=== PATIENT | male | born 1990 | race Caucasian/White ===

== ENCOUNTER 2016-07-20 05:50 | Emergency (ER) | payer SELFPAY ==
[2016-07-20 06:15] LABS: APPEARANCE CLEAR (CLEAR); BACTERIA FEW /hpf (NONE SEEN); BILIRUBIN NEGATIVE (NEGATIVE); COLOR YELLOW (YELLOW); EPITHELIAL CELLS OCC /hpf (0-5); GLUCOSE NEGATIVE (NEGATIVE); KETONE NEGATIVE (NEGATIVE); LEUKOCYTE ESTERASE NEGATIVE (NEGATIVE); MUCUS <1+ /lpf (NONE SEEN); NITRITE NEGATIVE (NEGATIVE); PROTEIN NEGATIVE (NEGATIVE); RED CELLS - URINE 25-50 /hpf (0-5); SPECIFIC GRAVITY 1.015 (1.005-1.020); UROBILINOGEN NORMAL (NORMAL); WHITE CELLS - URINE OCC /hpf (0-5)
[2016-07-20 06:43] LABS: BASOPHILS 0.3 % (0-2); EOSINOPHILS 8.6 % (0-7); HEMATOCRIT 43.9 % (42.0-54.0); HEMOGLOBIN 14.2 g/dL (13.5-17.5); IMMATURE GRANULOCYTES 0.3 % (0-5); LYMPHOCYTES 33.5 % (15-50); MCH 27.2 pg (26.0-34.0); MCHC 32.3 g/dL (31.0-37.0); MCV 84.1 fL (80.0-100.0); MEAN PLATELET VOLUME 9.1 fL (7.4-10.4); MONOCYTES 6.6 % (2-11); NEUTROPHILS 50.7 % (40-80); PLATELET COUNT 297 10x3/uL (130-400); RBC 5.22 10x6/uL (4.20-6.10); RDW 14.2 % (11.5-14.5); WBC 7.6 10x3/uL (4.8-10.8)
[2016-07-20 07:00] LABS: ALBUMIN 3.9 g/dL (3.4-5.0); ALKALINE PHOSPHATASE 79 U/L (46-116); ALT (SGPT) 68 U/L (10-68); CALC OSMOLALITY 277 mosm/kg (275-300); CALCIUM 9.2 mg/dL (8.5-10.1); CARBON DIOXIDE 29.3 mmol/L (21.0-32.0); CHLORIDE - SERUM 101 mmol/L (98-107); CREATININE - SERUM 0.9 mg/dL (0.6-1.3); GLUCOSE 115 mg/dL (74-106); POTASSIUM - SERUM 4.2 mmol/L (3.5-5.1); PROTEIN - SERUM 7.8 g/dL (6.4-8.2); SODIUM 139 mmol/L (136-145); UREA NITROGEN 11 mg/dL (7-18); eGFR NON AFRICAN AMERICAN > 90 mL/min (90-120)
== END 2016-07-20 08:16 | disposition home or self-care (01) ==
LOC: D.ER 05:50
PROVIDERS: Emergency Medicine
DX: N23 Unspecified renal colic (principal); N20.1 Calculus of ureter; I10 Essential (primary) hypertension

== ENCOUNTER 2016-09-20 16:51 | Emergency (ER) | payer SELFPAY | END 2016-09-20 21:15 | disposition home or self-care (01) | LOC: D.ER 16:51 | DX: I10 Essential (primary) hypertension (principal); R55 Syncope and collapse; F17.200 Nicotine dependence, unspecified, uncomplicated ==

== ENCOUNTER 2018-05-31 19:07 | Emergency (ER) | payer BC ==
[2018-05-31] MEDS ORDERED: LISINOPRIL-HCT1 EAC4 PO (19:15)
[2018-05-31 20:35] LABS: BASOPHILS 0.3 % (0-2); EOSINOPHILS 5.7 % (0-7); HEMATOCRIT 40.9 % (42.0-54.0); HEMOGLOBIN 13.5 g/dL (13.5-17.5); IMMATURE GRANULOCYTES 0.2 % (0-5); LYMPHOCYTES 21.8 % (15-50); MCH 27.2 pg (26.0-34.0); MCV 82.3 fL (80.0-100.0); MEAN PLATELET VOLUME 9.1 fL (7.4-10.4); MONOCYTES 5.4 % (2-11); NEUTROPHILS 66.6 % (40-80); PLATELET COUNT 342 10x3/uL (130-400); RBC 4.97 10x6/uL (4.20-6.10); WBC 10.2 10x3/uL (4.8-10.8)
[2018-05-31 21:01] LABS: ALBUMIN 3.8 g/dL (3.4-5.0); ALKALINE PHOSPHATASE 90 U/L (46-116); ALT (SGPT) 56 U/L (10-68); BILIRUBIN - TOTAL 0.36 mg/dL (0.2-1.3); CALC OSMOLALITY 275 mosm/kg (275-300); CALCIUM 8.7 mg/dL (8.5-10.1); CARBON DIOXIDE 26.1 mmol/L (21.0-32.0); CHLORIDE - SERUM 102 mmol/L (98-107); CREATININE - SERUM 0.8 mg/dL (0.6-1.3); GLUCOSE 160 mg/dL (74-106); PROTEIN - SERUM 7.8 g/dL (6.4-8.2); SODIUM 137 mmol/L (136-145); UREA NITROGEN 11 mg/dL (7-18); eGFR NON AFRICAN AMERICAN > 90 mL/min (90-120)
[2018-05-31 21:02] LABS: TROPONIN-I < 0.017 ng/mL (0.000-0.060)
[2018-05-31] MEDS ORDERED: STERAPRED 5MG 125 MG PO (21:48)
== END 2018-05-31 22:05 | disposition home or self-care (01) ==
LOC: D.ER 19:07
PROVIDERS: Family Medicine
DX: J40 Bronchitis, not specified as acute or chronic (principal)

== ENCOUNTER 2019-02-01 15:32 | Emergency (ER) | payer BC ==
[~2019-02-01] VITALS: Ht 188 cm; Wt 163.6 kg
[~2019-02-01 15:32] MED LIST: LISINOPRIL-HCT1 EAC4 PO; STERAPRED 5MG 125 MG PO
[2019-02-01 15:56] VITALS: Ht 188 cm; Wt 163.6 kg
[2019-02-01] MEDS ORDERED: BUPROPION HCL150 M1 PO (15:59)
[2019-02-01] MEDS ORDERED: NALTREXONE HCL50 MG PO (16:00)
[2019-02-01 16:22] LABS: BASOPHILS 0.1 % (0-2); EOSINOPHILS 1.5 % (0-7); HEMATOCRIT 45.2 % (42.0-54.0); HEMOGLOBIN 14.4 g/dL (13.5-17.5); IMMATURE GRANULOCYTES 0.1 % (0-5); LYMPHOCYTES 10.8 % (15-50); MCH 27.2 pg (26.0-34.0); MCHC 31.9 g/dL (31.0-37.0); MCV 85.3 fL (80.0-100.0); MEAN PLATELET VOLUME 8.9 fL (7.4-10.4); MONOCYTES 3.4 % (2-11); NEUTROPHILS 84.1 % (40-80); WBC 14.3 10x3/uL (4.8-10.8)
[2019-02-01 16:31] LABS: PLATELET COUNT 411 10x3/uL (130-400)
[2019-02-01 16:35] LABS: CALC OSMOLALITY 280 mosm/kg (275-300); CALCIUM 9.2 mg/dL (8.5-10.1); CARBON DIOXIDE 29.9 mmol/L (21.0-32.0); CHLORIDE - SERUM 101 mmol/L (98-107); POTASSIUM - SERUM 4.1 mmol/L (3.5-5.1); SODIUM 138 mmol/L (136-145); UREA NITROGEN 9 mg/dL (7-18); eGFR NON AFRICAN AMERICAN > 90 mL/min (90-120)
[2019-02-01 16:37] LABS: APTT 30.1 SECONDS (22.8-39.4); INR 0.95 (0.85-1.17); PROTIME 12.2 SECONDS (11.6-15.0)
[2019-02-01 16:38] LABS: GLUCOSE 214 mg/dL (74-106)
[2019-02-01 16:52] LABS: ALBUMIN 4.1 g/dL (3.4-5.0); ALKALINE PHOSPHATASE 95 U/L (46-116); ALT (SGPT) 56 U/L (10-68); CKMB 2.1 U/L (0.0-3.6); CREATINE KINASE 129 UL (21-232); PROTEIN - SERUM 7.8 g/dL (6.4-8.2); TROPONIN-I < 0.017 ng/mL (0.000-0.060)
[2019-02-01 17:58] LABS: APPEARANCE CLEAR (CLEAR); BILIRUBIN NEGATIVE (NEGATIVE); COLOR YELLOW (YELLOW); GLUCOSE 500 mg/dL (NEGATIVE); KETONE NEGATIVE (NEGATIVE); NITRITE NEGATIVE (NEGATIVE); PROTEIN NEGATIVE (NEGATIVE); UROBILINOGEN NORMAL (NORMAL)
[2019-02-01 18:06] LABS: UDS - AMPHET NEGATIVE QUAL (NEGATIVE); UDS - BARB NEGATIVE QUAL (NEGATIVE); UDS - BENZO NEGATIVE QUAL (NEGATIVE); UDS - COCAINE NEGATIVE QUAL (NEGATIVE); UDS - OPIATE NEGATIVE QUAL (NEGATIVE); UDS - PCP NEGATIVE QUAL (NEGATIVE); UDS - THC NEGATIVE QUAL (NEGATIVE)
[2019-02-01 18:27] VITALS: BP 140/83
== END 2019-02-01 18:28 | disposition home or self-care (01) ==
LOC: D.ER 15:32
PROVIDERS: Family Medicine
DX: R07.9 Chest pain, unspecified (principal); R73.9 Hyperglycemia, unspecified; D72.829 Elevated white blood cell count, unspecified; I10 Essential (primary) hypertension

== ENCOUNTER 2019-02-28 14:48 | Emergency (ER) | payer BC ==
[~2019-02-28] VITALS: Ht 188 cm; Wt 156.8 kg
[~2019-02-28 14:48] MED LIST changes: +BUPROPION HCL150 M1 PO; +NALTREXONE HCL50 MG PO
[2019-02-28 15:12] VITALS: Ht 188 cm; Wt 156.8 kg
[2019-02-28 15:48] LABS: APPEARANCE CLEAR (CLEAR); BILIRUBIN NEGATIVE (NEGATIVE); COLOR YELLOW (YELLOW); GLUCOSE NEGATIVE (NEGATIVE); KETONE SMALL mg/dL (NEGATIVE); NITRITE NEGATIVE (NEGATIVE); PROTEIN NEGATIVE (NEGATIVE); SPECIFIC GRAVITY 1.015 (1.005-1.020); UROBILINOGEN NORMAL (NORMAL)
[2019-02-28 15:50] LABS: BASOPHILS 0.2 % (0-2); HEMATOCRIT 46.6 % (42.0-54.0); HEMOGLOBIN 14.8 g/dL (13.5-17.5); IMMATURE GRANULOCYTES 0.2 % (0-5); LYMPHOCYTES 29.7 % (15-50); MCH 26.7 pg (26.0-34.0); MCHC 31.8 g/dL (31.0-37.0); MEAN PLATELET VOLUME 8.9 fL (7.4-10.4); MONOCYTES 12.2 % (2-11); NEUTROPHILS 53.7 % (40-80); RBC 5.55 10x6/uL (4.20-6.10); RDW 13.9 % (11.5-14.5); WBC 4.7 10x3/uL (4.8-10.8)
[2019-02-28 16:00] LABS: CALC OSMOLALITY 276 mosm/kg (275-300); CARBON DIOXIDE 33.3 mmol/L (21.0-32.0); CHLORIDE - SERUM 100 mmol/L (98-107); CREATININE - SERUM 0.8 mg/dL (0.6-1.3); POTASSIUM - SERUM 4.6 mmol/L (3.5-5.1); SODIUM 139 mmol/L (136-145); UREA NITROGEN 9 mg/dL (7-18); eGFR NON AFRICAN AMERICAN > 90 mL/min (90-120)
[2019-02-28 16:06] LABS: ALBUMIN 3.9 g/dL (3.4-5.0); ALKALINE PHOSPHATASE 105 U/L (46-116); ALT (SGPT) 47 U/L (10-68); AMYLASE - SERUM 48 U/L (25-115); GLUCOSE 107 mg/dL (74-106); LIPASE 91 U/L (73-393); PROTEIN - SERUM 7.5 g/dL (6.4-8.2)
[2019-02-28 16:07] LABS: PLATELET COUNT 270 10x3/uL (130-400)
[2019-02-28] MEDS ORDERED: DURAFLU 325-201 EACH PO (16:55)
[2019-02-28 18:06] VITALS: BP 101/40
== END 2019-02-28 18:08 | disposition home or self-care (01) ==
LOC: D.ER 14:48
PROVIDERS: Emergency Medicine
DX: J10.1 Influenza due to other identified influenza virus with other respiratory manifestations (principal); I10 Essential (primary) hypertension

== ENCOUNTER 2019-06-27 04:57 | Emergency (ER) | payer BC ==
[~2019-06-27] VITALS: Ht 188 cm; Wt 163.6 kg
[~2019-06-27 04:57] MED LIST changes: +DURAFLU 325-201 EACH PO
[2019-06-27 05:04] VITALS: Ht 188 cm; Wt 163.6 kg
[2019-06-27 05:20] LABS: BILIRUBIN NEGATIVE (NEGATIVE); GLUCOSE NEGATIVE (NEGATIVE); KETONE SMALL mg/dL (NEGATIVE); NITRITE NEGATIVE (NEGATIVE); UROBILINOGEN NORMAL (NORMAL)
[2019-06-27 05:25] LABS: BACTERIA NONE SEEN /hpf (NEGATIVE); EPITHELIAL CELLS RARE /hpf (0-5); RED CELLS - URINE >50 /hpf (0-5); WHITE CELLS - URINE RARE /hpf (NEGATIVE)
[2019-06-27] MEDS ORDERED: FLOMAX0.4 MG PO (06:27)
[2019-06-27] MEDS ORDERED: HYDROCODON-ACE1 EAC7 PO (06:28)
[2019-06-27] MEDS ORDERED: MACROBID100 MG PO (06:29)
[2019-06-27 06:37] VITALS: BP 132/81
== END 2019-06-27 06:38 | disposition home or self-care (01) ==
LOC: D.ER 04:57
PROVIDERS: Surgery
DX: R31.9 Hematuria, unspecified (principal); R10.9 Unspecified abdominal pain; N20.0 Calculus of kidney; I10 Essential (primary) hypertension

== ENCOUNTER 2019-06-29 07:29 | Observation (INO) | payer BC ==
[~2019-06-29] VITALS: Ht 188 cm; Wt 165.1 kg
[~2019-06-29 07:29] MED LIST changes: +FLOMAX0.4 MG PO; +HYDROCODON-ACE1 EAC7 PO; +MACROBID100 MG PO
[2019-06-29 08:08] LABS: HEMATOCRIT 43.5 % (42.0-54.0); HEMOGLOBIN 13.5 g/dL (13.5-17.5); LYMPHOCYTES 17.9 % (15-50); MCH 25.9 pg (26.0-34.0); MCV 83.3 fL (80.0-100.0); MEAN PLATELET VOLUME 8.5 fL (7.4-10.4); NEUTROPHILS 73.2 % (40-80); PLATELET COUNT 322 10x3/uL (130-400); RBC 5.22 10x6/uL (4.20-6.10); RDW 13.6 % (11.5-14.5); WBC 9.1 10x3/uL (4.8-10.8)
[2019-06-29 08:14] LABS: BILIRUBIN NEGATIVE (NEGATIVE); EPITHELIAL CELLS 0-5 /hpf (0-5); GLUCOSE NEGATIVE (NEGATIVE); KETONE NEGATIVE (NEGATIVE); NITRITE NEGATIVE (NEGATIVE); RED CELLS - URINE >50 /hpf (0-5); SPECIFIC GRAVITY 1.025 (1.005-1.020); UROBILINOGEN NORMAL (NORMAL); WHITE CELLS - URINE 0-5 /hpf (NEGATIVE)
[2019-06-29 08:15] LABS: BACTERIA FEW /hpf (NEGATIVE)
[2019-06-29 08:20] LABS: CALC OSMOLALITY 277 mosm/kg (275-300); CALCIUM 8.5 mg/dL (8.5-10.1); CHLORIDE - SERUM 102 mmol/L (98-107); CREATININE - SERUM 0.9 mg/dL (0.6-1.3); GLUCOSE 109 mg/dL (74-106); POTASSIUM - SERUM 4.1 mmol/L (3.5-5.1); SODIUM 139 mmol/L (136-145); UREA NITROGEN 11 mg/dL (7-18); eGFR NON AFRICAN AMERICAN > 90 mL/min (90-120)
[2019-06-29 08:26] LABS: ALBUMIN 3.8 g/dL (3.4-5.0); ALKALINE PHOSPHATASE 73 U/L (30-120); ALT (SGPT) 50 U/L (10-68); BILIRUBIN - TOTAL 0.37 mg/dL (0.2-1.3); PROTEIN - SERUM 7.3 g/dL (6.4-8.2)
[2019-06-29 10:45] VITALS: BP 136/79
--- NOTE | 2019-06-29 11:09 | NUR ---
REC'D IN ROOM 2227 AWAKE AND ALERT. RESP EVEN AND UNLABORED WITH NO DISTRESS NOTED. CAN EXPRESS NEEDS AND WANTS. NO C/O NOTED OR VOICED. IV NOTED TO LEFT AC. ASSESSMENT COMPLETED. C/L IN REACH AT BEDSIDE.
[2019-06-29 11:35] VITALS: BP 152/89; Ht 188 cm; Wt 165.1 kg
[2019-06-29 12:48] VITALS: BP 115/39
[2019-06-29 17:39] VITALS: BP 120/64
[2019-06-29 21:06] VITALS: BP 146/69
--- NOTE | 2019-06-29 22:02 | HP ---
PATIENT: KORTNEY CHAUDHRY MEDICAL RECORD: [id number] ACCOUNT: [id number] LOCATION:[id number] : 88 ADMISSION DATE: 06/29/19 PCP: GOVIND LAST HISTORY AND PHYSICAL EXAMINATION DATE OF ADMISSION: 06/29/2019. CHIEF COMPLAINT: Right flank pain. HISTORY OF PRESENT ILLNESS: This is a 28-year-old male who goes to [facility]. He presents today with right flank pain, this is a kidney stone problem. He has had kidney stones in the past. This incident actually started on 06/26/2019. He was seen in the ER on 06/27/2019 and sent home on Flomax, 5 mg of hydrocodone, and Macrobid. His pain got worse. He has not passed the stone. He has had nausea but no vomiting. He comes back in today for worsening problems and he is admitted. I was told by the ER doctor that Dr. Cherry was workforce management consultant and he has been consulted from the ED. PAST MEDICAL HISTORY: Hypertension, obesity, and previous kidney stones. He has never been hospitalized for a kidney stone. PAST SURGICAL HISTORY: Tonsils and adenoids were removed. HOME MEDICATIONS: Includes Flomax 0.4 mg once a day, Hugoton 5 p.r.n. pain, Macrobid b.i.d. since 06/27/2019, lisinopril/HCTZ 11/28.5 once a day, Wellbutrin-SR 150 twice a day, and naltrexone 25 mg once a day. The Wellbutrin and naltrexone are taken for weight loss. HABITS: He does not smoke. He seldom drinks alcohol. No drugs. SOCIAL HISTORY: , has 3 children. He works for [employer] and ____ . FAMILY HISTORY: Father is alive. He has history of heart disease as do many people in his family. Mother is alive; she has had a history of skin cancer and some sort of lung problem. REVIEW OF SYSTEMS: GENERAL: No major weight changes. HEENT: No particular sinus or allergy problems. RESPIRATORY: No history of asthma or emphysema. CARDIAC: No history of heart trouble in this 28 year old. GASTROINTESTINAL: Denies diarrhea, constipation, or heartburn. GENITOURINARY: He has a history of kidney stones. MUSCULOSKELETAL: No significant problems there. NEUROLOGIC: No migraines or seizures. PSYCHIATRIC: Denies depression or melancholia. PHYSICAL EXAMINATION: VITAL SIGNS: Temperature 98.2, pulse 76, respirations 16, blood pressure 128/64, O2 sat 98%. GENERAL: He does not appear in acute distress. He is awake and alert. HEENT: Grossly within normal limits. NECK: Supple. HEART: Regular rate and rhythm. LUNGS: Clear. HISTORY AND PHYSICAL [id number] ISIDORO,CHRISTOPHER ABDOMEN: Soft, obese, nontender. EXTREMITIES: No pitting edema. NEUROLOGIC: Intact. LABORATORY DATA: CBC with a white count 9100, hemoglobin 13.5, and hematocrit 43.5. Basic metabolic panel is all normal. Liver functions are all normal. Urinalysis yellow, slightly cloudy, trace protein, 2+ blood, greater than 50 red blood cells and few bacteria are seen. CT of abdomen and pelvis done today compared with previous on 06/27/2019 showed a 4-mm distal right ureteral calculus with mild hydronephrosis. It has moved distally a little since the CAT scan done 2 days ago. ASSESSMENT: Right ureteral calculi with pain. PLAN: The patient was given IV fluids and Toradol in the ED with minimal relief of his symptoms. He was given a dose of morphine and that has really helped. He was admitted to the floor with a consult put in for Dr. Cherry. However, I am of understanding this evening Dr. Cherry is not workforce management consultant. We will give him fluids and control his pain tonight and tomorrow we will see if he has passed it, and if not, we will have to make arrangements to transfer. TRANSINT:[id number] Voice Confirmation ID: [id number] DOCUMENT ID: [id number] ROSLYN MONTALVO MD at 2202 CC: [id number] DICTATION DATE: 06/29/191910 AU PAIR: 06/29/191956 ADM IN [facility] [address] [place] [address]
[2019-06-30 00:47] VITALS: BP 133/76
--- NOTE | 2019-06-30 01:07 | NUR ---
PT RESTING IN BED. EYES CLOSED. NO SIGNS OF DISTRESS. BREATHING EVEN AND UNLABORED. IV SITE LT AC DRESSING CLEAN DRY AND INTACT. NO SIGNS OF INFECITON OR INFULTRATION. LUNG SOUNDS CLEAR. BOWEL SOUNDS ACTIVE. SKIN CLEAN DRY AND INTACT. WILL CONTINUE PLAN OF CARE. CALL LIGHT IN REACH. BED LOWERED AND LOCKED. BED RAILS UPX2
--- NOTE | 2019-06-30 01:54 | NUR ---
I have reviewed this patient and I concur with the Shift Assessment completed by the Licensed Practical Nurse today this shift.
[2019-06-30 05:44] LABS: BASOPHILS 0.4 % (0-2); EOSINOPHILS 5.3 % (0-7); HEMATOCRIT 41.9 % (42.0-54.0); HEMOGLOBIN 12.9 g/dL (13.5-17.5); IMMATURE GRANULOCYTES 0.3 % (0-5); LYMPHOCYTES 28.3 % (15-50); MCH 26.6 pg (26.0-34.0); MCHC 30.8 g/dL (31.0-37.0); MONOCYTES 8.1 % (2-11); NEUTROPHILS 57.6 % (40-80); PLATELET COUNT 295 10x3/uL (130-400); RBC 4.85 10x6/uL (4.20-6.10); RDW 14.3 % (11.5-14.5); WBC 7.2 10x3/uL (4.8-10.8)
[2019-06-30 06:10] VITALS: BP 142/81
[2019-06-30 06:13] LABS: MCV 86.4 fL (80.0-100.0)
[2019-06-30 06:22] LABS: CALC OSMOLALITY 267 mosm/kg (275-300); CALCIUM 8.7 mg/dL (8.5-10.1); CARBON DIOXIDE 27.1 mmol/L (21.0-32.0); CHLORIDE - SERUM 104 mmol/L (98-107); CREATININE - SERUM 0.9 mg/dL (0.6-1.3); GLUCOSE 84 mg/dL (74-106); POTASSIUM - SERUM 3.8 mmol/L (3.5-5.1); SODIUM 135 mmol/L (136-145); UREA NITROGEN 11 mg/dL (7-18); eGFR NON AFRICAN AMERICAN > 90 mL/min (90-120)
[2019-06-30 08:00] VITALS: BP 136/70
--- NOTE | 2019-06-30 08:00 | NUR ---
ASSESSMENT PER FLOW SHEET. PATIENT IS WITHOUT DISTRESS.COMPLAINS OF SOME PAIN WHILE URINATING.MONITOR FOR NEEDS.
[2019-06-30] MEDS ORDERED: HYDROCODON-ACE1 EA10 PO (08:34)
--- NOTE | 2019-06-30 11:30 | NUR ---
DISCHARGE INSTRUCTIONS,STATES UNDERSTANDING. LEFT UNIT VIA WHEELCHAIR FOR TRANSPORT HOME. IV DCD WITH CATH TIP INTACT
== END 2019-06-30 11:30 | disposition home or self-care (01) ==
LOC: D.ER 07:29 → OBSVTIME 10:23 → D.MS 10:23
PROVIDERS: Family Medicine; ADMIT Family Medicine; ATTEND Family Medicine
DX: N20.1 Calculus of ureter (principal); I10 Essential (primary) hypertension; N13.30 Unspecified hydronephrosis

== ENCOUNTER 2019-10-13 19:48 | Emergency (ER) | payer SELFPAY ==
[~2019-10-13] VITALS: Ht 188 cm; Wt 168.2 kg
[~2019-10-13 19:48] MED LIST changes: +HYDROCODON-ACE1 EA10 PO
[2019-10-13 19:54] VITALS: Ht 188 cm; Wt 168.2 kg
[2019-10-13] MEDS ORDERED: FAMOTIDINE10 MG PO (19:58)
[2019-10-13] MEDS ORDERED: FISH OIL 1,0001 CA1 PO (19:58)
[2019-10-13] MEDS ORDERED: STERAPRED DS 1010 MG PO (19:59)
[2019-10-13 20:09] VITALS: BP 144/81
== END 2019-10-13 20:09 | disposition home or self-care (01) ==
LOC: D.ER 19:48
DX: R07.89 Other chest pain (principal); I10 Essential (primary) hypertension; K21.9 Gastro-esophageal reflux disease without esophagitis